=== PATIENT | female | born 1955 | race Caucasian/White ===

== ENCOUNTER 2021-05-14 22:02 | Emergency (ER) | payer MEDICAID ==
[2021-05-14 22:23] VITALS: BP 182/98; PULSE 106; RESP 16; TEMP 98
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
--- NOTE | 2021-05-14 22:48 | XR ---
EXAMINATION TYPE: XR wrist complete LT DATE OF EXAM: 05/14/2021 COMPARISON: NONE HISTORY: Wrist pain TECHNIQUE: 3 views FINDINGS: There is impacted transverse fracture distal radial metaphysis. This is 1 cm from the wrist joint. There is some posterior displacement 9 mm. There is ulnar styloid process fracture. Carpal mary clover are intact. IMPRESSION: Fractures of the distal radius and ulna as above with posterior radial distal comminuted fragment displacement. No dislocation.
[2021-05-14] MEDS ORDERED: LIDOCAINE 1% INJ 10MG/ML (20 ML MDV) SQ ONE (22:50)
[2021-05-15] MEDS ORDERED: traMADol 50 MG STARTER PACK 3 TAB BTL PO STA (00:08)
--- NOTE | 2021-05-15 00:41 | XR ---
EXAMINATION TYPE: XR wrist limited LT DATE OF EXAM: 05/15/2021 COMPARISON: NONE HISTORY: Post reduction TECHNIQUE: 2 views FINDINGS: There is good anatomic reduction of the impacted distal radius transverse fracture. There i s ulnar styloid process nondisplaced fracture. IMPRESSION: Excellent anatomic reduction of the distal radius fracture.
== END 2021-05-15 00:46 | disposition home or self-care (01) ==
LOC: EC 22:02
DX: S52.322A Displaced transverse fracture of shaft of left radius, initial encounter for closed fracture (principal); S52.612A Displaced fracture of left ulna styloid process, initial encounter for closed fracture; Y04.0XXA Assault by unarmed brawl or fight, initial encounter; Z88.0 Allergy status to penicillin
CPT/HCPCS: 99283; 25605; 73100; 73110; J2001